=== PATIENT | male | born 1990 | race African-American/Black ===

== ENCOUNTER 2016-10-20 14:48 | Emergency (ER) ==
[2016-10-20 14:53] VITALS: BP 114/74; TEMP 97.7; BMI 20.9
--- NOTE | 2016-10-20 15:16 | ED.PDOC ---
General ED Provider: Dr. HEATHER GARCÍA Chief Complaint: Bite Stated Complaint: INSECT BITE LET FOREARM Time Seen by Physician: 15:00 (INSECT BITE LEFT ELBOW 1 DAY AGO TODAY IS WORSE ) Mode of Arrival: Walk-In Information Source: Patient Exam Limitations: No limitations Nursing and Triage Documentation Reviewed and Agree: Yes (VIVIDLY RECAL BITE WHILE TAKING NI OUT AT WORK BUT UNSURE BY WHAT) Trauma/Injury Complaint Exam - Bite Injury Complaint/Exam Location of Bite: 1 DAY AO LEFT FOREARM SEE PHOTOS Bite Occured: 1 DAY AGO Symptoms Are: Still present Animal Immunized: Reports: N/A Initial Severity: Mild Current Severity: Mild Character: Reports: Puncture Aggravating: Reports: None Alleviating: Reports: None Associated Signs and Symptoms: Reports: Erythema, Swelling. Denies: Fever, Drainage, Lymphadenopathy, Numbness, Tingling, Limited ROM Related History: Reports: Unprovoked Animal Available for Observation: No Animal Control Notified: No Infection/Sepsis Risk Factors: Present: None Bite Findings: Present: Erythema, Swelling (SEE PHOTO) Differential Diagnoses: Cellulitis, Envenomation, Puncture Review of Systems - Review Of Systems Constitutional: Reports: No symptoms Eyes: Reports: No symptoms Ears, Nose, Mouth, Throat: Reports: No symptoms Respiratory: Reports: No symptoms Cardiac: Reports: No symptoms GI: Reports: No symptoms : Reports: No symptoms Musculoskeletal: Reports: No symptoms Skin: Reports: Other (EDEMA LEFT ELBOE/ FOREARM) Neurological: Reports: No symptoms Endocrine: Reports: No symptoms Hematologic/Lymphatic: Reports: No symptoms All Other Systems: Reviewed and Negative Past Medical History - Past Medical History Previously Healthy: Yes Endocrine: Reports: None Cardiovascular: Reports: None Respiratory: Reports: None Hematological: Reports: None Gastrointestinal: Reports: None Genitourinary: Reports: None Neuro/Psych: Reports: None Musculoskeletal: Reports: None Cancer: Reports: None - Surgical History General Surgical History: Reports: None - Family History Family History: Reports: None - Social History Smoking Status: Current every day smoker Hx Substance Use: No Alcohol Screening: Occasionally Physical Exam - Physical Exam Appearance: Well-appearing, No pain distress, Well-nourished Eyes: ABHILASH, EOMI, Conjunctiva clear ENT: Ears normal, Nose normal, Oropharynx normal Respiratory: Airway patent, Breath sounds clear, Breath sounds equal, Respirations nonlabored Cardiovascular: RRR, Pulses normal, No rub, No murmur GI/: Soft, Nontender, No masses, Bowel sounds normal, No Organomegaly Musculoskeletal: Normal strength, ROM intact, No edema, No calf tenderness Skin: Warm, Dry (10 CM HYPEREMAI LEFT FOREARM SEE PHOTO) Neurological: Sensation intact, Motor intact, Reflexes intact, Cranial nerves intact, Alert, Oriented Psychiatric: Affect appropriate, Mood appropriate Critical Care Note - Critical Care Note Total Time (mins): 0 Course - Course Vital Signs: Temp Pulse Resp BP Pulse Ox 10/20/16 14:49 97.7 F 67 14 114/74 98 Departure - Departure Time of Disposition: 15:18 (PHOTOS ATTACHED ) Disposition: HOME SELF-CARE Discharge Problem: Insect bite Qualifiers: Encounter type: initial encounter Qualifier Code: (W57.XXXA) Bitten or stung by nonvenomous insect and other nonvenomous arthropods, initial encounter Instructions: Insect Bite or Sting (ED) Condition: Good Pt referred to PMD for follow-up: No Additional Instructions: Please call your Family Physician as soon as possible to schedule a follow-up appointment. Allergies/Adverse Reactions: Allergies No Known Allergies Allergy (Unverified 10/20/16 14:52) Home Medications: Ambulatory Orders Sulfamethoxazole/Trimethoprim [Bactrim Ds 800/160 mg] 1 tab PO Q12HR #10 tablet 10/20/16
[2016-10-20] MEDS ORDERED: BENADRYL IM STA (15:18)
[2016-10-20] MEDS ORDERED: DECADRON 4 MG/ML SDV IM STA (15:18)
== END 2016-10-20 16:16 | disposition home or self-care (01) ==
LOC: ED 14:48
DX: S50.862A Insect bite (nonvenomous) of left forearm, initial encounter (principal); W57.XXXA Bitten or stung by nonvenomous insect and other nonvenomous arthropods, initial encounter; F17.210 Nicotine dependence, cigarettes, uncomplicated
CPT/HCPCS: 96372; 99283

== ENCOUNTER 2018-12-15 12:53 | Emergency (ER) ==
[2018-12-15 12:55] VITALS: BP 124/74; TEMP 98.6; BMI 20.5
--- NOTE | 2018-12-15 13:02 | ED.PDOC ---
General ED Provider: Dr. BLAKE DEE Chief Complaint: Non-specific Complaint Stated Complaint: [place] on L upper arm; started about 1 week ago. Started like a rash in the area; denies an insect bite at the site - had a bite about 4 inches distal to the area previously. Not red or warm. Time Seen by Physician: 12:55 Mode of Arrival: Walk-In Information Source: Patient Exam Limitations: No limitations Nursing and Triage Documentation Reviewed and Agree: Yes Does patient meet sepsis criteria?: No System Inflammatory Response Syndrome: Not Applicable Sepsis Protocol: For patient's 13 years and over: Temp is 96.8 and below OR 101 and greater Pulse >90 BPM Resp >20/minute Acutely Altered Mental Status Are patient's symptoms suggestive of a new infection, such as: -Pneumonia -Skin, Soft Tissue -Endocarditis -UTI -Bone, Joint Infection -Implantable Device -Acute Abdominal Infection -Wound Infection -Meningitis -Blood Stream Catheter Infection -Unknown Review of Systems - Review Of Systems Constitutional: Reports: No symptoms Skin: Reports: Lumps (Left upper arm - medial aspect) Neurological: Reports: No symptoms All Other Systems: Reviewed and Negative Past Medical History - Past Medical History Previously Healthy: Yes Endocrine: Reports: None Cardiovascular: Reports: None Respiratory: Reports: None Hematological: Reports: None Gastrointestinal: Reports: None Genitourinary: Reports: None Neuro/Psych: Reports: None Musculoskeletal: Reports: None Cancer: Reports: None - Surgical History General Surgical History: Reports: None - Family History Family History: Reports: None - Social History Smoking Status: Current every day smoker Hx Substance Use: No Alcohol Screening: Occasionally Physical Exam - Physical Exam Appearance: Well-appearing Ill-appearing: None Pain Distress: None Neck: Supple Respiratory: Airway patent, Respirations nonlabored Musculoskeletal: Normal strength, ROM intact, Limited ROM Skin: Warm, Dry, Normal color Neurological: Sensation intact, Motor intact, Alert, Oriented Psychiatric: Affect appropriate, Mood appropriate Critical Care Note - Critical Care Note Total Time (mins): 5 Course - Course Vital Signs: Temp Pulse Resp BP Pulse Ox 12/15/18 12:53 98.6 F 102 H 16 124/74 97 Departure - Departure Time of Disposition: 13:07 Disposition: HOME SELF-CARE Discharge Problem: Cyst Instructions: Cyst (ED) Condition: Good Pt referred to PMD for follow-up: Yes (Call for appointment) IPMP verified?: No (not applicable) Additional Instructions: Follow up with primary care or clinic for possible excision or evaluation by surgeon for excision. Allergies/Adverse Reactions: Allergies No Known Allergies Allergy (Unverified 12/15/18 12:55) Home Medications: Ambulatory Orders 1 [No Reported Medications] 12/15/18 Disposition Discussed With: Patient
== END 2018-12-15 13:15 | disposition home or self-care (01) ==
LOC: ED 12:53
DX: R22.32 Localized swelling, mass and lump, left upper limb (principal); F17.210 Nicotine dependence, cigarettes, uncomplicated
CPT/HCPCS: 99282

== ENCOUNTER 2019-01-07 15:44 | Emergency (ER) ==
[2019-01-07 15:59] VITALS: BP 104/63; TEMP 98; BMI 22.1
--- NOTE | 2019-01-07 16:54 | ED.PDOC ---
General ED Provider: Dr. HANY CAMARA Chief Complaint: Abscess Stated Complaint: Abscess and drainage lt arm lesion Time Seen by Physician: 16:15 Mode of Arrival: Walk-In Information Source: Patient Exam Limitations: Clinical condition Primary Care Provider: NORMAN VALENZUELA Nursing and Triage Documentation Reviewed and Agree: Yes Does patient meet sepsis criteria?: No System Inflammatory Response Syndrome: Not Applicable Sepsis Protocol: For patient's 13 years and over: Temp is 96.8 and below OR 101 and greater Pulse >90 BPM Resp >20/minute Acutely Altered Mental Status Are patient's symptoms suggestive of a new infection, such as: -Pneumonia -Skin, Soft Tissue -Endocarditis -UTI -Bone, Joint Infection -Implantable Device -Acute Abdominal Infection -Wound Infection -Meningitis -Blood Stream Catheter Infection -Unknown Review of Systems - Review Of Systems Constitutional: Reports: No symptoms Eyes: Reports: No symptoms Ears, Nose, Mouth, Throat: Reports: No symptoms Respiratory: Reports: No symptoms Cardiac: Reports: No symptoms GI: Reports: No symptoms : Reports: No symptoms Musculoskeletal: Reports: No symptoms Skin: Reports: No symptoms, Lumps (lt arm-=large cyst -retained sebaceous material) Neurological: Reports: No symptoms Endocrine: Reports: No symptoms Hematologic/Lymphatic: Reports: No symptoms All Other Systems: Reviewed and Negative Past Medical History - Past Medical History Previously Healthy: Yes Endocrine: Reports: None Cardiovascular: Reports: None Respiratory: Reports: None Hematological: Reports: None Gastrointestinal: Reports: None Genitourinary: Reports: None Neuro/Psych: Reports: None Musculoskeletal: Reports: None Cancer: Reports: None - Surgical History General Surgical History: Reports: None - Family History Family History: Reports: None - Social History Smoking Status: Current some day smoker Hx Substance Use: Yes (андрей) Alcohol Screening: Occasionally - Immunizations Tetanus Shot up to Date: No Physical Exam - Physical Exam Appearance: Well-appearing, No pain distress, Well-nourished Ill-appearing: None Pain Distress: Mild Eyes: ABHILASH, EOMI, Conjunctiva clear ENT: Ears normal, Nose normal, Oropharynx normal Respiratory: Airway patent, Breath sounds clear, Breath sounds equal, Respirations nonlabored Cardiovascular: RRR, Pulses normal, No rub, No murmur GI/: Soft, Nontender, No masses, Bowel sounds normal, No Organomegaly Musculoskeletal: Normal strength, ROM intact, No edema, No calf tenderness Skin: Warm (2.5 cm circumf elevated abscess-retained sebaceous material), Dry, Normal color Neurological: Sensation intact, Motor intact, Reflexes intact, Cranial nerves intact, Alert, Oriented Psychiatric: Affect appropriate, Mood appropriate Procedures - Incision and Drainage Instrument Used: 11 Blade I & D Procedure: Yes: Betadine Prep, Hibiclens Prep, Sterile drapes applied, Sterile dressing applied, Packing placed Lidocaine Used: Yes Type of Drainage: Present: Pus, None Irrigated: Yes Critical Care Note - Critical Care Note Total Time (mins): 0 Course - Course Orders, Labs, Meds: Orders Category Date Time Status Lidocaine HCl/Pf [Lidocaine HCl 1% Sdv] MEDS 01/07/19 17:05 Discontinued 5 ml SUBCUT ONCE STA Medications Discontinued Medications Generic Name Dose Route Start Last Admin Trade Name Freq PRN Reason Stop Dose Admin Lidocaine HCl 5 ml 01/07/19 17:05 01/07/19 17:10 Lidocaine Hcl 1% Sdv SUBCUT 01/07/19 17:06 5 ml ONCE STA Administration Vital Signs: Temp Pulse Resp BP Pulse Ox 01/07/19 15:48 98 F 89 16 104/63 95 Departure - Departure Time of Disposition: 17:30 Disposition: HOME SELF-CARE Discharge Problem: Abscess of left arm Instructions: Abscess (ED) Condition: Good Pt referred to PMD for follow-up: Yes (48 hrs) IPMP verified?: No Additional Instructions: Keep dressing in place; Follow up pcp i n48 hr or return to ER Take antibiotics Tylenol or Ibuprofen for pain as needed [place] for severe pain if needed(limited) Allergies/Adverse Reactions: Allergies latex Allergy (Unknown, Uncoded 12/31/18 14:56) Unknown patient is not sure if he is allergic or not. Home Medications: Ambulatory Orders Cephalexin [Keflex] 500 mg PO BID #14 capsule 01/07/19 Hydrocodone/Acetaminophen [[place] 5-325 Tablet] 1 each PO Q4-6H PRN #10 tablet Disposition Discussed With: Patient
[2019-01-07] MEDS ORDERED: LIDOCAINE HCL 1% SDV SUBCUT STA (17:05)
== END 2019-01-07 17:51 | disposition home or self-care (01) ==
LOC: ED 15:44
DX: L02.414 Cutaneous abscess of left upper limb (principal); F17.210 Nicotine dependence, cigarettes, uncomplicated
CPT/HCPCS: 87070; 99283

== ENCOUNTER 2019-01-11 11:55 | Emergency (ER) ==
[2019-01-11 12:01] VITALS: BP 122/77; TEMP 98.2; BMI 22.6
--- NOTE | 2019-01-11 12:26 | ED.PDOC ---
General ED Provider: Dr. BLANCA CORONA Chief Complaint: Wound Check Stated Complaint: Rosalva is a 28 year old male who states that he had a cyst removed 4 days ago on the left medial arm. Had a follow up with the clinic where he had it changed. returns today for dressing changes. Denies any pain or fever. Time Seen by Physician: 12:24 Mode of Arrival: Walk-In Information Source: Patient Primary Care Provider: NORMAN VALENZUELA Nursing and Triage Documentation Reviewed and Agree: Yes Does patient meet sepsis criteria?: No System Inflammatory Response Syndrome: Not Applicable Sepsis Protocol: For patient's 13 years and over: Temp is 96.8 and below OR 101 and greater Pulse >90 BPM Resp >20/minute Acutely Altered Mental Status Are patient's symptoms suggestive of a new infection, such as: -Pneumonia -Skin, Soft Tissue -Endocarditis -UTI -Bone, Joint Infection -Implantable Device -Acute Abdominal Infection -Wound Infection -Meningitis -Blood Stream Catheter Infection -Unknown Skin Complaint Exam - Skin/Soft Tissue Complaint/Exam Onset/Duration: 3 days Symptoms Are: Still present Timing: Constant Initial Severity: Moderate Current Severity: Mild Location: Left arm Aggravating: Reports: None Alleviating: Reports: None Skin Findings: Present: Other (Healing wound with erythematous base.) Differential Diagnoses: Abscess, Cellulitis, Infection Review of Systems - Review Of Systems Constitutional: Reports: No symptoms Eyes: Reports: No symptoms Ears, Nose, Mouth, Throat: Reports: No symptoms Respiratory: Reports: No symptoms Cardiac: Reports: No symptoms GI: Reports: No symptoms : Reports: No symptoms Musculoskeletal: Reports: No symptoms Skin: Reports: Lesions (wound on the left arm) Neurological: Reports: No symptoms Endocrine: Reports: No symptoms Hematologic/Lymphatic: Reports: No symptoms All Other Systems: Reviewed and Negative Past Medical History - Past Medical History Previously Healthy: Yes Endocrine: Reports: None Cardiovascular: Reports: None Respiratory: Reports: None Hematological: Reports: None Gastrointestinal: Reports: None Genitourinary: Reports: None Neuro/Psych: Reports: None Musculoskeletal: Reports: None Cancer: Reports: None - Surgical History General Surgical History: Reports: None - Family History Family History: Reports: None - Social History Smoking Status: Current every day smoker Hx Substance Use: (pot) Alcohol Screening: Occasionally - Immunizations Tetanus Shot up to Date: Yes Physical Exam - Physical Exam Appearance: Well-appearing Neck: Supple Respiratory: Airway patent, Breath sounds clear, Breath sounds equal, Respirations nonlabored Cardiovascular: RRR, Pulses normal, No rub, No murmur GI/: Soft, Nontender, No masses, Bowel sounds normal, No Organomegaly Skin: Warm, Dry Neurological: Alert, Oriented Psychiatric: Affect appropriate, Mood appropriate Critical Care Note - Critical Care Note Total Time (mins): 0 Course - Course Vital Signs: Temp Pulse Resp BP Pulse Ox 01/11/19 11:56 98.2 F 82 16 122/77 97 Departure - Departure Time of Disposition: 12:30 Disposition: HOME SELF-CARE Discharge Problem: Wound Instructions: Wound Healing and Your Diet (ED) Condition: Stable Pt referred to PMD for follow-up: Yes IPMP verified?: No Additional Instructions: follow up with the clinic in 2 days to have dressing changed Continue your antibiotics. Allergies/Adverse Reactions: Allergies latex Allergy (Unknown, Uncoded 01/11/19 12:17) Unknown patient is not sure if he is allergic or not. Home Medications: Ambulatory Orders Cephalexin [Keflex] 500 mg PO BID #14 capsule 01/07/19 Hydrocodone/Acetaminophen [[place] 5-325 Tablet] 1 each PO Q4-6H PRN #10 tablet
== END 2019-01-11 12:40 | disposition home or self-care (01) ==
LOC: ED 11:55
DX: Z48.01 Encounter for change or removal of surgical wound dressing (principal); F17.210 Nicotine dependence, cigarettes, uncomplicated
CPT/HCPCS: 99281